=== PATIENT | female | born 1930 | race Caucasian/White ===

== ENCOUNTER 2018-03-11 20:05 | Inpatient (IN) | payer MEDICARE ==
[~2018-03-11] VITALS: Ht 165.1 cm; Wt 99.0 kg
[~2018-03-11 20:05] MED LIST: ALPR0.25 PO; GLYB5TAB3 PO; HYDR-1179 PO; IBUP800T19 PO; LINA145C PO; LISI1TAB5 PO; LORA0.5T96 PO; METF100010 PO; METF500T16 PO; PANT40TA3 PO
[2018-03-11] MEDS ORDERED: IV NORMAL SALINE 1,000ML 1,000 ML IV ONE (20:30)
[2018-03-11] MEDS ORDERED: INSULIN REGULAR 100 UNIT/ML 3ML VIAL. IV ONE (20:30)
[2018-03-11 20:57] LABS: BASO % 1 % (0-3); EOS % 0 % (0-3); LYMPH # 0.7 x10^3/uL (1.0-4.8); LYMPH % 8 % (24-48); MEAN CORPUSCULAR HEMOGLOBIN 32 pg (25-35); MEAN CORPUSCULAR HGB CONC 33 g/dL (31-37); MEAN CORPUSCULAR VOLUME 95 fL (79-100); MONO # 0.5 x10^3/uL (0.0-1.1); MONO % 6 % (0-9); NEUT # 7.5 x10^3uL (1.8-7.7); NEUT % 85 % (31-73); PLATELET COUNT 246 x10^3/uL (140-400); RED BLOOD COUNT 3.78 x10^6/uL (3.50-5.40); WHITE BLOOD COUNT 8.8 x10^3/uL (4.0-11.0)
--- NOTE | 2018-03-11 21:03 | ED.ADGEN ---
Past History Past Medical History: Arthritis, Diabetes, Hypertension Past Surgical History: Appendectomy, Hysterectomy, Tonsillectomy Smoking: Non-smoker Alcohol Use: None Drug Use: None Adult General Chief Complaint Chief Complaint fall HPI HPI fall , at home , lives with her daughter, i felt my knees weak, fell backward, hit my head , no syncope ,no cp , no palpitation, just generalized weakness Review of Systems Review of Systems Constitutional: Denies fever or chills [] Eyes: Denies change in visual acuity, redness, or eye pain [] HENT: Denies nasal congestion or sore throat [] Respiratory: Denies cough or shortness of breath [] Cardiovascular: No additional information not addressed in HPI [] GI: Denies abdominal pain, nausea, vomiting, bloody stools or diarrhea [] : Denies dysuria or hematuria [] Musculoskeletal: Denies back pain or joint pain [] Integument: Denies rash or skin lesions [] Neurologic: Denies headache, focal weakness or sensory changes [] Endocrine: Denies polyuria or polydipsia [] All other systems were reviewed and found to be within normal limits, except as documented in this note. Current Medications Current Medications Current Medications Medications (Trade) Dose Ordered Sig/Roberto Start Time Stop Time Status Last Admin Dose Admin Acetaminophen (Tylenol) 650 mg PRN Q4HRS PRN 03/11/18 23:15 03/12/18 23:14 Insulin Human Regular (HumuLIN R VIAL) 5 unit 1X ONCE 03/11/18 20:30 03/11/18 20:31 DC 03/11/18 21:10 5 UNIT Morphine Sulfate (Morphine 2mg Syringe) 2 mg PRN Q2HR PRN 03/11/18 23:15 03/12/18 23:14 Morphine Sulfate (Morphine 4mg Syringe) 4 mg 1X ONCE 03/11/18 23:30 03/11/18 23:31 DC 03/11/18 23:12 4 MG Ondansetron HCl (Zofran) 4 mg PRN Q4HRS PRN 03/11/18 23:15 03/12/18 23:14 Sodium Chloride 1,000 ml @ 75 mls/hr [id number] 03/11/18 23:10 03/12/18 23:09 Allergies Allergies Allergies Coded Allergies Type Severity Reaction Last Updated Verified No Known Drug Allergies 10/04/14 No Physical Exam Physical Exam Constitutional: Well developed, well nourished, no acute distress, non-toxic appearance. [] HENT: Normocephalic, atraumatic, bilateral external ears normal, oropharynx moist, no oral exudates, nose normal. [] Eyes: PERRLA, EOMI, conjunctiva normal, no discharge. [] Neck: Normal range of motion, no tenderness, supple, no stridor. [] Cardiovascular:Heart rate regular rhythm, no murmur [] Lungs & Thorax: Bilateral breath sounds clear to auscultation [] Abdomen: Bowel sounds normal, soft, no tenderness, no masses, no pulsatile masses. [] Skin: Warm, dry, no erythema, no rash. [] Back: No tenderness, no CVA tenderness. [] Extremities: No tenderness, no cyanosis, no clubbing, ROM intact, no edema. [] Neurologic: Alert and oriented X 3, normal motor function, normal sensory function, no focal deficits noted. [] Psychologic: Affect normal, judgement normal, mood normal. [] Current Patient Data Vital Signs Vital Signs Date Time Temp Pulse Resp B/P (MAP) Pulse Ox O2 Delivery O2 Flow Rate FiO2 03/11/18 23:12 16 96 Room Air 03/11/18 20:05 98.4 75 Lab Results Laboratory Tests Test 03/11/18 20:31 03/11/18 20:41 03/11/18 21:05 03/11/18 22:17 Glucose (Fingerstick) 227 mg/dL (70-99) H 168 mg/dL (70-99) H White Blood Count 8.8 x10^3/uL (4.0-11.0) Red Blood Count 3.78 x10^6/uL (3.50-5.40) Hemoglobin 12.0 g/dL (12.0-15.5) Hematocrit 36.0 % (36.0-47.0) Mean Corpuscular Volume 95 fL (79-100) Mean Corpuscular Hemoglobin 32 pg (25-35) Mean Corpuscular Hemoglobin Concent 33 g/dL (31-37) Red Cell Distribution Width 13.0 % (11.5-14.5) Platelet Count 246 x10^3/uL (140-400) Neutrophils (%) (Auto) 85 % (31-73) H Lymphocytes (%) (Auto) 8 % (24-48) L Monocytes (%) (Auto) 6 % (0-9) Eosinophils (%) (Auto) 0 % (0-3) Basophils (%) (Auto) 1 % (0-3) Neutrophils # (Auto) 7.5 x10^3uL (1.8-7.7) Lymphocytes # (Auto) 0.7 x10^3/uL (1.0-4.8) L Monocytes # (Auto) 0.5 x10^3/uL (0.0-1.1) Eosinophils # (Auto) 0.0 x10^3/uL (0.0-0.7) Basophils # (Auto) 0.0 x10^3/uL (0.0-0.2) Sodium Level 135 mmol/L (136-145) L Potassium Level 5.2 mmol/L (3.5-5.1) H Chloride Level 98 mmol/L (98-107) Carbon Dioxide Level 27 mmol/L (21-32) Anion Gap 10 (6-14) Blood Urea Nitrogen 26 mg/dL (7-20) H Creatinine 1.1 mg/dL (0.6-1.0) H Estimated GFR (Cockcroft-Gault) 47.0 BUN/Creatinine Ratio 24 (6-20) H Glucose Level 248 mg/dL (70-99) H Calcium Level 10.0 mg/dL (8.5-10.1) Total Bilirubin 0.4 mg/dL (0.2-1.0) Aspartate Amino Transferase (AST) 19 U/L (15-37) Alanine Aminotransferase (ALT) 23 U/L (14-59) Alkaline Phosphatase 65 U/L (46-116) Troponin I Quantitative < 0.017 ng/mL (0-0.055) Total Protein 7.8 g/dL (6.4-8.2) Albumin 3.9 g/dL (3.4-5.0) Albumin/Globulin Ratio 1.0 (1.0-1.7) Urine Collection Type U cath Urine Color Yellow Urine Clarity Clear Urine pH 5.5 Urine Specific Thatcher >=1.030 Urine Protein 30 mg/dl (NEG-TRACE) Urine Glucose (UA) 100 mg/dL (NEG) Urine Ketones (Stick) Trace mg/dL (NEG) Urine Blood Neg (NEG) Urine Nitrite Neg (NEG) Urine Bilirubin Neg (NEG) Urine Urobilinogen Dipstick 0.2 mg/dL (0.2 mg/dL) Urine Leukocyte Esterase Neg (NEG) Urine RBC 1-2 /HPF (0-2) Urine WBC 1-4 /HPF (0-4) Urine Squamous Epithelial Cells Mod /LPF Urine Bacteria Few /HPF (0-FEW) Urine Hyaline Casts Few /HPF EKG EKG [] Radiology/Procedures Radiology/Procedures [] Course & Med Decision Making Course & Med Decision Making Pertinent Labs and Imaging studies reviewed. (See chart for details) [] Final Impression Final Impression [] Problems: (1) Hyperglycemia (2) Generalized weakness Dragon Disclaimer Dragon Disclaimer This electronic medical record was generated, in whole or in part, using a voice recognition dictation system. KATELYN CHAVEZ MD Mar 11, 2018 21:03
[2018-03-11 21:13] LABS: ALBUMIN 3.9 g/dL (3.4-5.0); CREATININE 1.1 mg/dL (0.6-1.0); POTASSIUM 5.2 mmol/L (3.5-5.1); TOTAL BILIRUBIN 0.4 mg/dL (0.2-1.0); TOTAL PROTEIN 7.8 g/dL (6.4-8.2)
--- NOTE | 2018-03-11 22:06 | RAD ---
PQRS Compliance statement: One or more of the following individualized dose reduction techniques were utilized for this examination: 1. Automated exposure control. 2. Adjustment of the mA and/or kV according to patient size. 3. Use of iterative reconstruction technique. Indication:fall x 2 in last couple days TECHNIQUE: CT head without IV contrast COMPARISON:None FINDINGS: Limited exam due to motion artifact. No pathologic extra-axial or intra-axial fluid collection. Mild diffuse cerebral atrophy. The ventricles and basal cisterns are within normal limits. Bilateral basal ganglia punctate calcifications, nonspecific. No acute intracranial bleed. No focal loss of moncada-white differentiation. Orbits are within normal limits. No large scalp hematoma. No apparent acute calvarial fractures. The paranasal sinuses and mastoid air cells are clear. IMPRESSION: Limited exam due to significant motion artifact. No apparent intracranial process. Electronically signed by: Toño Connor DO (03/11/2018 10:01 PM) [facility]
[2018-03-11 22:28] LABS: BACTERIA,URINE FEW /HPF (0-FEW); BILIRUBIN,URINE NEG (NEG); CLARITY,URINE CLEAR; COLOR,URINE YELLOW; GLUCOSE,URINE 100 mg/dL (NEG); NITRITE,URINE NEG (NEG); UROBILINOGEN,URINE 0.2 mg/dL (0.2 mg/dL)
[2018-03-11 22:29] LABS: HYALINE CASTS, URINE FEW /HPF; SQUAMOUS EPITHELIAL CELL,UR MOD /LPF
--- NOTE | 2018-03-11 22:40 | RAD ---
Indication: Fall. Bilateral knee pain and pelvic pain. TECHNIQUE: Multiple views of the bilateral knees and multiple views of the pelvis COMPARISON: None FINDINGS: Knee: Osteopenia. No acute fracture or dislocation. Moderate bilateral tricompartmental osteoarthritis worse in the patellofemoral compartments. No suprapatellar effusion. Pelvis: Bilateral hip joints are symmetric. Mild bilateral osteoarthritis. No acute fracture. IMPRESSION: As above. Electronically signed by: Toño Connor DO (03/11/2018 10:36 PM) [facility]
[2018-03-11] MEDS ORDERED: MORPHINE SULFATE 2 MG/ML DISP.SYRIN. IV PRN (23:15)
[2018-03-11] MEDS ORDERED: ONDANSETRON PF 4 MG/2 ML VIAL. IV PRN (23:15)
[2018-03-11] MEDS ORDERED: MORPHINE SULFATE 4 MG/ML DISP.SYRIN. IV ONE (23:30)
[2018-03-12 00:28] VITALS: BP 164/75
[2018-03-12] MEDS ORDERED: GLYB5TAB3 PO (01:27)
[2018-03-12] MEDS ORDERED: METF500T16 PO (01:27)
[2018-03-12] MEDS ORDERED: MIRA50TA PO (01:27)
[2018-03-12] MEDS ORDERED: ZOLP5TAB5 PO (01:27)
[2018-03-12] MEDS ORDERED: MV-M1TAB7 PO (01:34)
[2018-03-12] MEDS ORDERED: CALC-30 PO (01:34)
[2018-03-12] MEDS ORDERED: ASPI-630 PO (01:38)
[2018-03-12] MEDS ORDERED: VIT1TABL32 PO (01:38)
[2018-03-12] MEDS ORDERED: ACET325T9 PO (01:38)
[2018-03-12] MEDS ORDERED: LEVO75TA5 PO (01:38)
[2018-03-12] MEDS: IV NORMAL SALINE 1,000ML 1,000 ML IV SCH ×2 (01:57→14:59)
[2018-03-12] MEDS: ACETAMINOPHEN 325 MG TABLET PO PRN ×3 (01:57→20:45)
--- NOTE | 2018-03-12 04:12 | EKG ---
[address] [address] Test Date: 2018-03-11 Test Time: 20:46:11 Pat Name: FLORIDA NUGENT Department: Room: 124 A Gender: F Data Communications Engineer: : [id number] Requested By: KATELYN CHAVEZ Order Number: [id number] Reading MD: Klaus Nolan MD Measurements Intervals Tanana Rate: 72 P: 48 WY: 156 QRS: -12 QRSD: 90 T: 20 QT: 380 QTc: 418 Interpretive Statements SINUS RHYTHM NON-SPECIFIC ST/T CHANGES Electronically Signed On 03-16-2018 9:36:09 A P MECHANIC by Klaus Nolan MD
[2018-03-12 04:37] VITALS: BP 146/71
--- NOTE | 2018-03-12 04:43 | RAD ---
AP chest x-ray HISTORY: Cough and shortness of breath, fall. COMPARISON: Chest x-ray April 19, 2016. FINDINGS: Mild cardiomegaly is stable. Mediastinum unremarkable. No pneumothorax, pulmonary opacities or pleural effusions. The bones are unremarkable. IMPRESSION: No acute process. Mild cardiomegaly stable. Electronically signed by: Kanu Fraire MD (03/12/2018 4:38 AM) [facility]
[2018-03-12 06:11] LABS: BASO % 1 % (0-3); EOS % 0 % (0-3); HEMATOCRIT 32.2 % (36.0-47.0); HEMOGLOBIN 10.8 g/dL (12.0-15.5); LYMPH # 1.2 x10^3/uL (1.0-4.8); LYMPH % 18 % (24-48); MEAN CORPUSCULAR HEMOGLOBIN 32 pg (25-35); MEAN CORPUSCULAR HGB CONC 34 g/dL (31-37); MEAN CORPUSCULAR VOLUME 95 fL (79-100); MONO # 0.6 x10^3/uL (0.0-1.1); MONO % 10 % (0-9); NEUT # 4.6 x10^3uL (1.8-7.7); NEUT % 71 % (31-73); PLATELET COUNT 209 x10^3/uL (140-400); RED BLOOD COUNT 3.38 x10^6/uL (3.50-5.40); RED CELL DISTRIBUTION WIDTH 12.8 % (11.5-14.5); WHITE BLOOD COUNT 6.5 x10^3/uL (4.0-11.0)
[2018-03-12 06:23] LABS: ALBUMIN 3.3 g/dL (3.4-5.0); ALBUMIN/GLOBULIN RATIO 0.9 (1.0-1.7); CALCIUM 9.1 mg/dL (8.5-10.1); GFR 52.4; POTASSIUM 4.2 mmol/L (3.5-5.1); TOTAL BILIRUBIN 0.4 mg/dL (0.2-1.0); TOTAL PROTEIN 6.9 g/dL (6.4-8.2)
[2018-03-12] MEDS ORDERED: glyBURIDE 5 MG TABLET PO SCH (09:00)
[2018-03-12] MEDS ORDERED: LEVOTHYROXINE 75 MCG TABLET PO SCH (09:00)
[2018-03-12] MEDS ORDERED: HYDROcodon/IBUPROFEN 7.5/200MG 1 TAB TABLET PO PRN (09:00)
[2018-03-12] MEDS ORDERED: NON FORMULARY ITEM (Mirabegron (Myrbetriq) 50 MG) PO SCH (09:00)
[2018-03-12] MEDS ORDERED: IPRATRPIUM/ALBUTEROL 0.5/2.5MG 3 ML NEBU. ONE (09:13)
[2018-03-12] MEDS: IPRATRPIUM/ALBUTEROL 0.5/2.5MG 3 ML NEBU. NEB SCH ×3 (09:45→20:28)
[2018-03-12] MEDS: MIRABEGRON 25 MG TAB.ER.24H PO SCH (09:52)
[2018-03-12] MEDS: HYDROcodone/APAP 7.5/325MG 1 TAB TABLET PO PRN ×2 (09:53→20:46)
[2018-03-12] MEDS: MULTIVITAMIN with MINERAL TABLET. PO SCH (09:53)
[2018-03-12] MEDS: BENZONATATE 100 MG CAPSULE. PO SCH ×3 (09:54→21:00)
[2018-03-12] MEDS: ACETAMINOPHEN 500 MG TABLET PO SCH ×2 (09:54→21:00)
[2018-03-12] MEDS: metFORMIN 500 MG TABLET PO SCH (09:54)
[2018-03-12] MEDS: ASPIRIN 81 MG TAB.CHEW PO SCH (09:54)
[2018-03-12] MEDS: MULTIVITAMIN I-VITE TABLET. PO SCH (09:54)
[2018-03-12] MEDS: CALCIUM CARB/VIT D3 500/200 TABLET PO SCH (09:54)
[2018-03-12 10:23] VITALS: BP 167/72
[2018-03-12 12:07] LABS: INFLUENZA A PATIENT NEGATIVE (NEGATIVE); INFLUENZA B PATIENT NEGATIVE (NEGATIVE)
[2018-03-12] MEDS: BENZOCAINE/MENTHOL LOZNGE 18'S BOX. PO PRN (15:22)
[2018-03-12 15:24] VITALS: BP 158/66
[2018-03-12 19:31] VITALS: BP 165/75
[2018-03-12 20:09] LABS: HEMOGLOBIN A1C 8.3 % (4.8-5.6)
--- NOTE | 2018-03-12 20:30 | HP ---
ADMIT DATE: 03/11/2018 HISTORY OF PRESENT ILLNESS: The patient is an 87-year-old female who came in through the Emergency Room, apparently for the last 3 days, has not been feeling well and has been falling; however, refused to come to the hospital until late last night when she fell again and required several people to pick her up and her daughter demanded that she come to the Emergency Room. From there, she was admitted to the hospital. She was having what appeared to be possible sepsis. She had some change in mental status, decreased mentation, and the like. She had an elevated D-dimer, probably from the fall itself and will be evaluated for that in time. PAST MEDICAL AND SURGICAL HISTORY: Includes tonsillectomy, cardiac disorders, hypertension, GERD, obstructive bowel problems, appendectomy, obesity, hysterectomy, renal disease, osteoarthritis, back pain, diabetes, hypothyroidism, pneumococcal vaccination is refused. She has had bladder surgery, as well as the appendectomy. FAMILY HISTORY: Father and mother both had diabetes; cardiovascular disease in brother, father, and sister. ALLERGIES: No known drug allergies. She is a DNR. SOCIAL HISTORY: No smoking, alcohol, or drug use. Lives at home. MEDICATIONS: I reconciled her home medications, which looked appropriate, have been reviewed, and are in the chart. REVIEW OF SYSTEMS: The patient is very tremulous, she is very weak, and does not seem her normal self. She was running a low-grade temperature of 99.6 and just not breathing very well, with difficulty in breathing. The patient was unable to give a review of systems, as like I said, she was basically out of it. PHYSICAL EXAMINATION: VITAL SIGNS: Her initial blood monitored at 208/106, respiratory rate 18, pulse 76, temperature 99.6. She is on 2 liters of oxygen. She has difficulty in breathing. She is a mouth breather. GENERAL: The patient otherwise is alert, but as noted, is not able to give much of a history. Most of the history is obtained from her daughter. HEENT: Head was atraumatic, normocephalic, maybe a bump on the back of the head where she had fallen. Mouth and throat are normal. Eyes were PERRLA. NECK: Fairly supple though some stiffness. LUNGS: Diminished throughout, poor movement of air. CARDIOVASCULAR: Regular sinus rhythm, S1, S2. ABDOMEN: Soft, nontender, protuberant. No rebounding, no guarding. Positive bowel sounds, no hepatosplenomegaly was noted. EXTREMITIES: No clubbing or cyanosis. Have +1 pitting edema, apparently it has gone down somewhat since she has had her legs up during the night. LUNGS: Show decreased breath sounds with both inspiratory and expiratory wheezes. CARDIOVASCULAR: Regular sinus rhythm, soft, and so forth. LABORATORY DATA: Basically are unremarkable. She did have a blood sugar of 227. Her BUN and creatinine 135/3.5 ____ BUN and creatinine of 26/1.1. Cardiac troponin negative. White count stable at 6.5, hemoglobin 10, and hematocrit 38. Positive D-dimer, specific gravity of urine greater than 1.030. She will be monitored carefully, make further evaluation on her in that regard. IMPRESSION: Generalized weakness, acute exacerbation of chronic obstructive pulmonary disease. The patient had marked wheezing and tightness in her chest. The patient otherwise has acute exacerbation of chronic obstructive pulmonary disease, SIRS, type 2 diabetes, morbid obesity, anemia of chronic disease, positive D-dimer, contusion of the head with mild concussion, change in mental status, probably secondary to fall, and mild concussion. IMAGING STUDIES: A CT scan of the head was unremarkable as were the rest of her x-rays of the pelvis, knee, and chest were basically all within normal range and no acute process was noted. PLAN: The patient will be admitted, aggressive pulmonary toilet, give her some IV antibiotic for this low grade temperature, being a diabetic and at high risk for such, and make further evaluation on her as indicated. We will get a CTA of her chest and make further evaluations on her as indicated. SARA ASHFORD MD DR: INTHYA/mickie JOB#: [id number] / [id number]
[2018-03-12] MEDS: ZOLPIDEM 5 MG TABLET. PO SCH (20:45)
[2018-03-12 23:01] VITALS: BP 137/68
[2018-03-13] VITALS (8 sets, daily range): BP systolic 127–201; BP diastolic 69–89
[2018-03-13] MEDS ORDERED: amLODIPine BESYLATE 10 MG TABLET PO ONE (02:30)
[2018-03-13] MEDS: IPRATRPIUM/ALBUTEROL 0.5/2.5MG 3 ML NEBU. NEB SCH ×4 (05:13→19:47)
[2018-03-13] MEDS ORDERED: FUROSEMIDE 20 MG/2 ML VIAL IVP ONE (05:30)
[2018-03-13] MEDS: LEVOTHYROXINE 75 MCG TABLET PO SCH (05:32)
[2018-03-13 06:27] LABS: BASO % 0 % (0-3); EOS % 0 % (0-3); HEMATOCRIT 33.6 % (36.0-47.0); LYMPH # 0.8 x10^3/uL (1.0-4.8); LYMPH % 8 % (24-48); MEAN CORPUSCULAR HEMOGLOBIN 32 pg (25-35); MEAN CORPUSCULAR HGB CONC 33 g/dL (31-37); MEAN CORPUSCULAR VOLUME 96 fL (79-100); MONO # 0.6 x10^3/uL (0.0-1.1); MONO % 6 % (0-9); NEUT # 8.1 x10^3uL (1.8-7.7); NEUT % 86 % (31-73); PLATELET COUNT 208 x10^3/uL (140-400); RED CELL DISTRIBUTION WIDTH 13.2 % (11.5-14.5); WHITE BLOOD COUNT 9.4 x10^3/uL (4.0-11.0)
[2018-03-13 06:36] LABS: ALBUMIN 3.4 g/dL (3.4-5.0); ALBUMIN/GLOBULIN RATIO 0.9 (1.0-1.7); CREATININE 0.9 mg/dL (0.6-1.0); GFR 59.2; TOTAL BILIRUBIN 0.4 mg/dL (0.2-1.0); TOTAL PROTEIN 7.3 g/dL (6.4-8.2)
[2018-03-13] MEDS: glyBURIDE 5 MG TABLET PO SCH (08:28)
[2018-03-13] MEDS: metFORMIN 500 MG TABLET PO SCH (08:29)
[2018-03-13] MEDS: ACETAMINOPHEN 500 MG TABLET PO SCH ×2 (08:29→20:40)
[2018-03-13] MEDS: MULTIVITAMIN I-VITE TABLET. PO SCH (08:29)
[2018-03-13] MEDS: BENZONATATE 100 MG CAPSULE. PO SCH ×3 (08:29→20:40)
[2018-03-13] MEDS: ASPIRIN 81 MG TAB.CHEW PO SCH (08:29)
[2018-03-13] MEDS: amLODIPine BESYLATE 10 MG TABLET PO SCH (08:30)
[2018-03-13] MEDS: CALCIUM CARB/VIT D3 500/200 TABLET PO SCH (08:30)
[2018-03-13] MEDS: MULTIVITAMIN with MINERAL TABLET. PO SCH (08:30)
[2018-03-13] MEDS: MIRABEGRON 25 MG TAB.ER.24H PO SCH (08:34)
[2018-03-13] MEDS: LACTOBACILLUS RHAMNOSUS GG 1 CAPSULE. PO SCH ×2 (08:34→20:40)
[2018-03-13] MEDS ORDERED: DEXTROSE 50% 25 GM / 50ML DISP.SYRIN. IV PRN (10:00)
--- NOTE | 2018-03-13 11:34 | RAD ---
EXAM: CT chest with contrast - pulmonary embolus protocol CLINICAL HISTORY: ELEVATED D DIMER dyspnea, shortness of breath. COMPARISON: None. TECHNIQUE: CT of the chest following the administration of intravenous contrast during the pulmonary arterial phase. Axial, coronal and sagittal reformatted images were generated including MIP images. ---PQRS compliance statement - One or more of the following individualized dose reduction techniques were utilized for this study: 1. Automated exposure control 2. Adjustment of the mA and/or kV according to patient size 3. Use of iterative reconstruction technique--- FINDINGS: CHEST: Diagnostic quality: Adequate. Pulmonary emboli: None seen Right heart strain: None Pulmonary arteries: Normal in caliber. The heart is borderline enlarged. No pericardial effusion. Coronary artery calcifications are seen. Calcified mediastinal lymph nodes are seen. No mediastinal or hilar lymphadenopathy by size criteria. No axillary lymphadenopathy. No pleural effusion or pneumothorax. Linear and patchy opacities in the lower lobes bilaterally and lingula likely subsegmental atelectasis or consolidation. A 4 mm left lower lobe lung nodule (image 45) is seen. Visualized Upper abdomen: Diffuse hepatic hypoattenuation likely hepatic steatosis. Calcified granulomas are seen within the spleen. Bones: Multilevel degenerative changes of the spine are seen. Evaluation of the osseous structures is limited given MIP reformats. IMPRESSION: 1. No evidence for acute pulmonary embolus. 2. Linear and patchy opacities in the lower lobes, lingula may represent consolidative process such as pneumonia although atelectasis may have similar appearance. 3. Hepatic steatosis Electronically signed by: hSadi Ramírez MD (03/13/2018 11:29 AM) [facility]
[2018-03-13] MEDS: INSULIN LISPRO 300 UNITS/3 ML INSULN.PEN. SQ SCH ×2 (12:17→17:17)
--- NOTE | 2018-03-13 12:39 | PN ---
DATE: SUBJECTIVE: An 87-year-old female in with acute exacerbation of COPD as well as severe generalized weakness, deconditioning and ____. The patient seems to be resting fairly comfortably, a little bit fluid overloaded, gave her some Lasix, put a Farley catheter in, we will obtain a PICC line, and continues to need IV antibiotic therapy and type 2 diabetes, we will put her on a sliding scale. VITAL SIGNS: Blood pressure 165/81, respiratory rate 22, pulse 85, afebrile. GENERAL: Positive D-dimer. To get an angiogram. Otherwise, the patient is alert, weak, but a little bit stronger than she was yesterday. She is improving. LUNGS: Diminished, rhonchi noted in most of the lobes, decreased breath sounds. CARDIOVASCULAR: Regular sinus rhythm. LABORATORY DATA: A1c 8.3. PLAN: We will continue to monitor the patient and we will make further evaluation on her as indicated. Otherwise, her legs are still showing some signs of swelling and edema. Place KEN hoses on them as well as try to keep them elevated at least for 2 hours during the day. We will get an angiogram. IMPRESSION: Acute exacerbation of chronic obstructive pulmonary disease, stasis dermatitis, some type of upper respiratory tract infection, etiology unknown; type 2 diabetes, poorly controlled, and elevated D-dimer. Plan as above. SARA ASHFORD MD DR: NITHYA/mickie JOB#: [id number] / [id number]
[2018-03-13] MEDS: BENZOCAINE/MENTHOL LOZNGE 18'S BOX. PO PRN (13:10)
[2018-03-13] MEDS: DICLOFENAC SODIUM 1% TOPICAL GEL 100GM TUBE. TP SCH ×2 (14:29→20:41)
[2018-03-13] MEDS: HYDROcodon/IBUPROFEN 7.5/200MG 1 TAB TABLET PO PRN (20:40)
[2018-03-13] MEDS: ZOLPIDEM 5 MG TABLET. PO SCH (20:40)
[2018-03-14] MEDS: IPRATRPIUM/ALBUTEROL 0.5/2.5MG 3 ML NEBU. NEB SCH ×4 (05:26→20:08)
[2018-03-14] MEDS: LEVOTHYROXINE 75 MCG TABLET PO SCH (05:32)
[2018-03-14] MEDS: HYDROcodon/IBUPROFEN 7.5/200MG 1 TAB TABLET PO PRN (05:32)
[2018-03-14 05:49] VITALS: BP 167/77
[2018-03-14] MEDS: INSULIN LISPRO 300 UNITS/3 ML INSULN.PEN. SQ SCH ×3 (08:00→17:17)
[2018-03-14] MEDS: glyBURIDE 5 MG TABLET PO SCH (09:08)
[2018-03-14] MEDS: LACTOBACILLUS RHAMNOSUS GG 1 CAPSULE. PO SCH ×2 (09:08→20:34)
[2018-03-14] MEDS: metFORMIN 500 MG TABLET PO SCH (09:08)
[2018-03-14] MEDS: MULTIVITAMIN with MINERAL TABLET. PO SCH (09:08)
[2018-03-14] MEDS: MIRABEGRON 25 MG TAB.ER.24H PO SCH (09:09)
[2018-03-14] MEDS: ACETAMINOPHEN 500 MG TABLET PO SCH ×2 (09:09→20:33)
[2018-03-14] MEDS: BENZONATATE 100 MG CAPSULE. PO SCH ×3 (09:09→20:34)
[2018-03-14] MEDS: ASPIRIN 81 MG TAB.CHEW PO SCH (09:10)
[2018-03-14] MEDS: amLODIPine BESYLATE 10 MG TABLET PO SCH (09:10)
[2018-03-14] MEDS: CALCIUM CARB/VIT D3 500/200 TABLET PO SCH (09:10)
[2018-03-14] MEDS: MULTIVITAMIN I-VITE TABLET. PO SCH (09:10)
[2018-03-14] MEDS: DICLOFENAC SODIUM 1% TOPICAL GEL 100GM TUBE. TP SCH ×3 (09:11→20:38)
[2018-03-14 10:45] VITALS: BP 151/75
[2018-03-14 15:42] VITALS: BP 168/79
[2018-03-14 19:41] VITALS: BP 149/72
[2018-03-14] MEDS: BENZOCAINE/MENTHOL LOZNGE 18'S BOX. PO PRN (20:33)
[2018-03-14] MEDS: ZOLPIDEM 5 MG TABLET. PO SCH (20:34)
--- NOTE | 2018-03-14 22:46 | PN ---
DATE: SUBJECTIVE: An 87-year-old female in with pneumonia of unspecified etiology, acute respiratory failure with hypoxia. The patient is resting fairly comfortably, receiving IV antibiotic therapy as well as aggressive pulmonary toilet. She is improved overall. OBJECTIVE: VITAL SIGNS: Blood pressure 150/72, respiratory rate 24, pulse 64. She ran a low-grade temperature of 99. GENERAL: The patient is alert and oriented. LUNGS: Diminished throughout, poor movement of air, but clear than they have been. CARDIOVASCULAR: Regular sinus rhythm. ABDOMEN: Soft, protuberant. EXTREMITIES: No clubbing, cyanosis or edema. NEUROLOGIC: The patient is much more alert. IMPRESSION: She has been discussed with the daughter present of acute exacerbation of chronic obstructive pulmonary disease, hypoxia, acute community-acquired pneumonia of unspecified etiology, morbid obesity, type 2 diabetes and [id number] protein malnutrition. SARA ASHFORD MD DR: NITHYA/mickie JOB#: [id number] / [id number]
[2018-03-14 23:01] VITALS: BP 175/73
[2018-03-15] MEDS: LEVOTHYROXINE 75 MCG TABLET PO SCH (05:24)
[2018-03-15 05:34] VITALS: BP 188/92
[2018-03-15] MEDS: IPRATRPIUM/ALBUTEROL 0.5/2.5MG 3 ML NEBU. NEB SCH ×4 (05:34→20:17)
[2018-03-15] MEDS: INSULIN LISPRO 300 UNITS/3 ML INSULN.PEN. SQ SCH ×3 (08:00→17:33)
[2018-03-15] MEDS: BENZOCAINE/MENTHOL LOZNGE 18'S BOX. PO PRN (08:08)
[2018-03-15] MEDS: CALCIUM CARB/VIT D3 500/200 TABLET PO SCH (08:09)
[2018-03-15] MEDS: BENZONATATE 100 MG CAPSULE. PO SCH ×3 (08:09→20:43)
[2018-03-15] MEDS: HYDROcodon/IBUPROFEN 7.5/200MG 1 TAB TABLET PO PRN (08:09)
[2018-03-15] MEDS: glyBURIDE 5 MG TABLET PO SCH (08:09)
[2018-03-15] MEDS: ACETAMINOPHEN 500 MG TABLET PO SCH ×2 (08:09→20:43)
[2018-03-15] MEDS: amLODIPine BESYLATE 10 MG TABLET PO SCH (08:09)
[2018-03-15] MEDS: metFORMIN 500 MG TABLET PO SCH (08:09)
[2018-03-15] MEDS: ASPIRIN 81 MG TAB.CHEW PO SCH (08:10)
[2018-03-15] MEDS: MULTIVITAMIN I-VITE TABLET. PO SCH (08:10)
[2018-03-15] MEDS: MIRABEGRON 25 MG TAB.ER.24H PO SCH (08:10)
[2018-03-15] MEDS: DICLOFENAC SODIUM 1% TOPICAL GEL 100GM TUBE. TP SCH ×3 (08:12→20:43)
[2018-03-15] MEDS: MULTIVITAMIN with MINERAL TABLET. PO SCH (08:12)
[2018-03-15] MEDS: LACTOBACILLUS RHAMNOSUS GG 1 CAPSULE. PO SCH ×2 (08:14→20:43)
[2018-03-15 10:27] VITALS: BP 157/76
[2018-03-15 14:50] VITALS: BP 136/66
[2018-03-15] MEDS: HYDROcodone/APAP 7.5/325MG 1 TAB TABLET PO PRN (16:46)
[2018-03-15 19:47] VITALS: BP 172/82
[2018-03-15] MEDS: ZOLPIDEM 5 MG TABLET. PO SCH (20:43)
[2018-03-15] MEDS: CEFDINIR 300 MG CAPSULE PO SCH (20:48)
--- NOTE | 2018-03-15 22:45 | PN ---
DATE: SUBJECTIVE: An 87-year-old female with pneumonia. She is doing somewhat better, looks a little bit healthier today. OBJECTIVE: VITAL SIGNS: Blood pressure 157/76, respiratory rate 24, pulse 60, afebrile, oxygen saturation on 1 liter 95%. GENERAL: The patient is alert and oriented, little bit of more strength, better affect. Daughter present. LUNGS: Diminished rhonchi noted, probably moving some of the secretions she had in her lungs. Otherwise, she seems to be resting fairly comfortably. CARDIOVASCULAR: Irregularly irregular rhythm. ABDOMEN: Protuberant, soft, nontender. EXTREMITIES: No clubbing or cyanosis. There is edema, a little more like lymphedema, but less redness than there has been. We discussed lymphedema with the family. IMPRESSION: Pneumonia of unspecified etiology, community-acquired as well as exacerbation of chronic obstructive pulmonary disease with hypoxia and morbid obesity, type 2 diabetes, htjs-qv-ikqezsal protein malnutrition. PLAN: Continue on such. We will try to get her into a skilled unit for further evaluation and treatment as indicated. SARA ASHFORD MD DR: NITHYA/mickie JOB#: [id number] / [id number]
[2018-03-15 23:26] VITALS: BP 159/80
[2018-03-16] MEDS: LEVOTHYROXINE 75 MCG TABLET PO SCH (05:00)
[2018-03-16] MEDS: HYDROcodone/APAP 7.5/325MG 1 TAB TABLET PO PRN (05:00)
[2018-03-16] MEDS: IPRATRPIUM/ALBUTEROL 0.5/2.5MG 3 ML NEBU. NEB SCH ×3 (05:30→15:48)
[2018-03-16 05:41] VITALS: BP 178/87
[2018-03-16] MEDS: DICLOFENAC SODIUM 1% TOPICAL GEL 100GM TUBE. TP SCH ×2 (09:00→13:26)
[2018-03-16] MEDS: BENZONATATE 100 MG CAPSULE. PO SCH ×2 (09:04→13:25)
[2018-03-16] MEDS: glyBURIDE 5 MG TABLET PO SCH (09:04)
[2018-03-16] MEDS: LACTOBACILLUS RHAMNOSUS GG 1 CAPSULE. PO SCH (09:04)
[2018-03-16] MEDS: CALCIUM CARB/VIT D3 500/200 TABLET PO SCH (09:05)
[2018-03-16] MEDS: MULTIVITAMIN with MINERAL TABLET. PO SCH (09:05)
[2018-03-16] MEDS: amLODIPine BESYLATE 10 MG TABLET PO SCH (09:05)
[2018-03-16] MEDS: MULTIVITAMIN I-VITE TABLET. PO SCH (09:05)
[2018-03-16] MEDS: ASPIRIN 81 MG TAB.CHEW PO SCH (09:06)
[2018-03-16] MEDS: CEFDINIR 300 MG CAPSULE PO SCH (09:06)
[2018-03-16] MEDS: metFORMIN 500 MG TABLET PO SCH (09:07)
[2018-03-16] MEDS: ACETAMINOPHEN 500 MG TABLET PO SCH (09:07)
[2018-03-16] MEDS: MIRABEGRON 25 MG TAB.ER.24H PO SCH (09:08)
[2018-03-16] MEDS: INSULIN LISPRO 300 UNITS/3 ML INSULN.PEN. SQ SCH ×2 (09:10→13:29)
[2018-03-16 11:02] VITALS: BP 172/78
--- NOTE | 2018-03-16 13:22 | DS ---
DATE OF DISCHARGE: 03/16/2018 HOSPITAL COURSE: The patient is an 87-year-old female patient who was admitted with a complaint of not feeling well. She was found to be septic with altered mental status, decreased mentation. She has elevated D-dimer and was diagnosed with community-acquired pneumonia. Her CT scan of the chest showed no evidence of acute pulmonary embolism, but linear and patchy opacities in the lower lobe, ____ consolidative process such as pneumonia and was treated for community-acquired pneumonia with ceftriaxone and eventually she was switched to cefdinir. Her blood cultures showed no growth after 4 days and urine culture also showed less than 10,000 colony forming units of bacteria per mL of urine. As the patient continued to be deconditioned, a decision was made to admit her to swing bed to continue the process of rehabilitation. PHYSICAL EXAMINATION: GENERAL: When I saw her today, she was sitting in her chair comfortably, eating her lunch, in no apparent distress. There was no pallor, jaundice, cyanosis, or thyromegaly. No jugular venous distension. No lower limb edema. VITAL SIGNS: Her heart rate was 62, blood pressure was 172/78, temperature was 98.5, respiratory rate was 18, and oxygen saturation was 93% on room air. HEAD, EYES, EARS, NOSE, AND THROAT: Showed she is normocephalic, atraumatic. NECK: Supple. HEART: Showed normal first and second heart sounds. No gallop, rub, or murmur. CHEST: Clear to auscultation. No crepitation or rhonchi. ABDOMEN: Distended, soft, nontender. NEUROLOGIC: She is awake, alert, responding appropriately. All cranial nerves intact. She moves extremities without difficulty. Her intake over the last 24 hours was 860, output was 1600. LABORATORY DATA: Her most recent white cell count was 9400, hemoglobin 11, hematocrit 33, MCV 96, and platelet count of 208,000. Her blood sugar was reasonably controlled. Her most recent sodium was 137, potassium 4, chloride 100, bicarbonate 23, anion gap of 14, BUN 17, creatinine 0.9, estimated GFR was 59 mL per minute. Her calcium was 9. Total bilirubin, AST, ALT, alkaline phosphatase were normal. Total protein was 7.3, albumin was 3.4. Her D-dimer was slightly elevated at 0.79. Urinalysis was unremarkable and influenza A and B were negative. DISCHARGE MEDICATIONS: She was discharged to swing bed to continue on following medications: Cefdinir 300 mg twice a day, Tylenol 650 mg twice a day, aspirin 81 mg once a day, calcium carbonate with vitamin ____ one tablet once a day, glyburide 5 mg daily, hydrocodone/ibuprofen 7.5/200 one tablet every 6 hours as needed. She is also on levothyroxine 75 mcg once a day, metformin 500 mg daily, Myrbetriq 50 mg daily, multivitamin with mineral 1 tablet once a day, Ambien 5 mg at bedtime. FINAL DISCHARGE DIAGNOSES: 1. Community-acquired pneumonia, resolving. 2. Chronic obstructive pulmonary disease exacerbation. 3. Morbid obesity with obesity hypoventilation syndrome. 4. Type 2 diabetes. 5. Fbgn-ww-mczezkbe protein calorie malnutrition. JACINTO TRINIDAD MD DR: BEV/mickie JOB#: [id number] / [id number]
[2018-03-16 15:00] VITALS: BP 145/69
[2018-03-16] MEDS: BENZOCAINE/MENTHOL LOZNGE 18'S BOX. PO PRN (16:12)
== END 2018-03-16 17:40 | disposition swing bed (61) | DRG 88 ==
LOC: ER 20:05 → 1 SOUTH 22:30
PROVIDERS: ADMIT Family Medicine; ATTEND Family Medicine
DX: S06.0X9A Concussion with loss of consciousness of unspecified duration, initial encounter (principal); J18.9 Pneumonia, unspecified organism; J96.01 Acute respiratory failure with hypoxia; R65.10 Systemic inflammatory response syndrome (SIRS) of non-infectious origin without acute organ dysfunction; J44.1 Chronic obstructive pulmonary disease with (acute) exacerbation; J44.0 Chronic obstructive pulmonary disease with (acute) lower respiratory infection; E44.0 Moderate protein-calorie malnutrition; E66.2 Morbid (severe) obesity with alveolar hypoventilation; S00.93XA Contusion of unspecified part of head, initial encounter; D63.8 Anemia in other chronic diseases classified elsewhere; E11.65 Type 2 diabetes mellitus with hyperglycemia; E87.70 Fluid overload, unspecified; I10 Essential (primary) hypertension; I87.2 Venous insufficiency (chronic) (peripheral); Z82.49 Family history of ischemic heart disease and other diseases of the circulatory system; Z90.49 Acquired absence of other specified parts of digestive tract; Z90.710 Acquired absence of both cervix and uterus; Z83.3 Family history of diabetes mellitus; M19.90 Unspecified osteoarthritis, unspecified site; W18.39XA Other fall on same level, initial encounter; Y93.89 Activity, other specified; Y92.89 Other specified places as the place of occurrence of the external cause; Y99.8 Other external cause status; Z68.36 Body mass index [BMI] 36.0-36.9, adult
CPT/HCPCS: 36415; 70450; 71045; 71275; 72170; 73560; 80053; 81001; 82947; 83036; 83605; 83880; 84145; 84484; 85025; 85379; 87040; 87086; 87804; 93005; 94640; 94760; 96361; 96374; 96375; J0696; J1815; J2270; J7620; P9612; 97116; 99285-25; J7030

== ENCOUNTER 2018-03-16 12:42 | Inpatient (IN) | payer MEDICARE ==
[~2018-03-16] VITALS: Ht 165.1 cm; Wt 95.5 kg
[~2018-03-16 12:42] MED LIST changes: +ACET325T9 PO; +ASPI-630 PO; +CALC-30 PO; +LEVO75TA5 PO; +MIRA50TA PO; +MV-M1TAB7 PO; +VIT1TABL32 PO; +ZOLP5TAB5 PO
[2018-03-16] MEDS ORDERED: ZOLPIDEM 5 MG TABLET. PO PRN (19:30)
[2018-03-16] MEDS: BENZOCAINE/MENTHOL LOZNGE 18'S BOX. PO PRN (20:25)
[2018-03-16] MEDS: LACTOBACILLUS RHAMNOSUS GG 1 CAPSULE. PO SCH (20:34)
[2018-03-16] MEDS: BENZONATATE 100 MG CAPSULE. PO SCH (20:34)
[2018-03-16] MEDS: CEFDINIR 300 MG CAPSULE PO SCH (20:34)
[2018-03-16] MEDS: HYDROcodone/APAP 7.5/325MG 1 TAB TABLET PO PRN (20:37)
[2018-03-16] MEDS: ACETAMINOPHEN 500 MG TABLET PO SCH (20:37)
[2018-03-16] MEDS: DICLOFENAC SODIUM 1% TOPICAL GEL 100GM TUBE. TP SCH (20:38)
[2018-03-16] MEDS: IPRATRPIUM/ALBUTEROL 0.5/2.5MG 3 ML NEBU. NEB SCH (20:54)
[2018-03-16] MEDS ORDERED: INSULIN LISPRO 300 UNITS/3 ML INSULN.PEN. SQ ONE (21:00)
[2018-03-16 23:34] VITALS: BP 155/78
[2018-03-17] MEDS: IPRATRPIUM/ALBUTEROL 0.5/2.5MG 3 ML NEBU. NEB SCH ×4 (05:20→20:31)
[2018-03-17] MEDS: HYDROcodone/APAP 7.5/325MG 1 TAB TABLET PO PRN ×3 (05:53→21:14)
[2018-03-17] MEDS: LEVOTHYROXINE 75 MCG TABLET PO SCH (05:53)
[2018-03-17 06:23] VITALS: BP 170/78
[2018-03-17] MEDS ORDERED: amLODIPine BESYLATE 10 MG TABLET ONE (06:34)
[2018-03-17] MEDS: amLODIPine BESYLATE 10 MG TABLET PO SCH (06:39)
[2018-03-17] MEDS: BENZONATATE 100 MG CAPSULE. PO SCH ×3 (07:59→21:13)
[2018-03-17] MEDS: ACETAMINOPHEN 500 MG TABLET PO SCH ×2 (07:59→21:13)
[2018-03-17] MEDS: MULTIVITAMIN with MINERAL TABLET. PO SCH (07:59)
[2018-03-17] MEDS: ASPIRIN 81 MG TAB.CHEW PO SCH (07:59)
[2018-03-17] MEDS: metFORMIN 500 MG TABLET PO SCH ×2 (08:00→17:28)
[2018-03-17] MEDS: CALCIUM CARB/VIT D3 500/200 TABLET PO SCH ×2 (08:00→17:28)
[2018-03-17] MEDS: glyBURIDE 5 MG TABLET PO SCH ×2 (08:00→17:28)
[2018-03-17] MEDS: LACTOBACILLUS RHAMNOSUS GG 1 CAPSULE. PO SCH ×2 (08:00→21:13)
[2018-03-17] MEDS: CEFDINIR 300 MG CAPSULE PO SCH ×2 (08:00→21:13)
[2018-03-17] MEDS: MIRABEGRON 25 MG TAB.ER.24H PO SCH (08:01)
[2018-03-17] MEDS: INSULIN LISPRO 300 UNITS/3 ML INSULN.PEN. SQ SCH ×3 (08:05→17:32)
[2018-03-17] MEDS: DICLOFENAC SODIUM 1% TOPICAL GEL 100GM TUBE. TP SCH ×3 (08:25→21:17)
[2018-03-17 15:06] VITALS: BP 163/76
[2018-03-17 20:30] VITALS: BP 166/74
[2018-03-18] MEDS: HYDROcodone/APAP 7.5/325MG 1 TAB TABLET PO PRN ×4 (03:17→20:47)
[2018-03-18] MEDS: LEVOTHYROXINE 75 MCG TABLET PO SCH (05:35)
[2018-03-18] MEDS: IPRATRPIUM/ALBUTEROL 0.5/2.5MG 3 ML NEBU. NEB SCH ×4 (05:42→20:17)
[2018-03-18 06:05] VITALS: BP 158/84
[2018-03-18] MEDS: INSULIN LISPRO 300 UNITS/3 ML INSULN.PEN. SQ SCH ×3 (07:30→16:30)
[2018-03-18] MEDS: ACETAMINOPHEN 500 MG TABLET PO SCH ×2 (09:00→20:47)
[2018-03-18] MEDS: glyBURIDE 5 MG TABLET PO SCH ×2 (09:08→17:16)
[2018-03-18] MEDS: MULTIVITAMIN with MINERAL TABLET. PO SCH (09:08)
[2018-03-18] MEDS: BENZONATATE 100 MG CAPSULE. PO SCH ×3 (09:08→20:47)
[2018-03-18] MEDS: MIRABEGRON 25 MG TAB.ER.24H PO SCH (09:08)
[2018-03-18] MEDS: CEFDINIR 300 MG CAPSULE PO SCH ×2 (09:08→20:48)
[2018-03-18] MEDS: ASPIRIN 81 MG TAB.CHEW PO SCH (09:08)
[2018-03-18] MEDS: LACTOBACILLUS RHAMNOSUS GG 1 CAPSULE. PO SCH ×2 (09:08→20:47)
[2018-03-18] MEDS: amLODIPine BESYLATE 10 MG TABLET PO SCH (09:08)
[2018-03-18] MEDS: DICLOFENAC SODIUM 1% TOPICAL GEL 100GM TUBE. TP SCH ×3 (09:09→20:49)
[2018-03-18] MEDS: CALCIUM CARB/VIT D3 500/200 TABLET PO SCH ×2 (09:09→17:16)
[2018-03-18] MEDS: metFORMIN 500 MG TABLET PO SCH ×2 (09:09→17:16)
[2018-03-18] MEDS: BENZOCAINE/MENTHOL LOZNGE 18'S BOX. PO PRN ×2 (09:54→20:48)
[2018-03-18] MEDS: POLYETHYLENE GLYCOL 3350 17 GM PACKET. PO PRN (17:53)
[2018-03-18 19:40] VITALS: BP 145/60
[2018-03-19] MEDS: HYDROcodone/APAP 7.5/325MG 1 TAB TABLET PO PRN (04:28)
[2018-03-19] MEDS: IPRATRPIUM/ALBUTEROL 0.5/2.5MG 3 ML NEBU. NEB SCH ×4 (05:12→20:34)
[2018-03-19] MEDS: LEVOTHYROXINE 75 MCG TABLET PO SCH (05:29)
[2018-03-19 05:48] VITALS: BP 156/64
[2018-03-19] MEDS: INSULIN LISPRO 300 UNITS/3 ML INSULN.PEN. SQ SCH ×3 (07:30→17:00)
[2018-03-19] MEDS: MULTIVITAMIN with MINERAL TABLET. PO SCH (08:02)
[2018-03-19] MEDS: CALCIUM CARB/VIT D3 500/200 TABLET PO SCH ×2 (08:02→16:57)
[2018-03-19] MEDS: ASPIRIN 81 MG TAB.CHEW PO SCH (08:02)
[2018-03-19] MEDS: LACTOBACILLUS RHAMNOSUS GG 1 CAPSULE. PO SCH ×2 (08:02→20:16)
[2018-03-19] MEDS: glyBURIDE 5 MG TABLET PO SCH ×2 (08:02→16:57)
[2018-03-19] MEDS: BENZONATATE 100 MG CAPSULE. PO SCH ×3 (08:03→20:16)
[2018-03-19] MEDS: CEFDINIR 300 MG CAPSULE PO SCH ×2 (08:03→20:16)
[2018-03-19] MEDS: MIRABEGRON 25 MG TAB.ER.24H PO SCH (08:03)
[2018-03-19] MEDS: amLODIPine BESYLATE 10 MG TABLET PO SCH (08:03)
[2018-03-19] MEDS: metFORMIN 500 MG TABLET PO SCH ×2 (08:03→16:57)
[2018-03-19] MEDS: POLYETHYLENE GLYCOL 3350 17 GM PACKET. PO PRN (08:04)
[2018-03-19] MEDS: BENZOCAINE/MENTHOL LOZNGE 18'S BOX. PO PRN ×2 (08:04→20:16)
[2018-03-19] MEDS: DICLOFENAC SODIUM 1% TOPICAL GEL 100GM TUBE. TP SCH ×3 (08:04→20:20)
[2018-03-19] MEDS: ACETAMINOPHEN 500 MG TABLET PO SCH ×2 (08:09→20:16)
[2018-03-19] MEDS ORDERED: DOCUSATE SODIUM 100 MG CAPSULE PO PRN (17:15)
[2018-03-19 20:00] VITALS: BP 159/76
[2018-03-20] MEDS: HYDROcodone/APAP 7.5/325MG 1 TAB TABLET PO PRN (05:00)
[2018-03-20] MEDS: LEVOTHYROXINE 75 MCG TABLET PO SCH (05:00)
[2018-03-20 05:14] VITALS: BP 169/80
[2018-03-20] MEDS: IPRATRPIUM/ALBUTEROL 0.5/2.5MG 3 ML NEBU. NEB SCH ×4 (05:19→20:00)
[2018-03-20] MEDS: amLODIPine BESYLATE 10 MG TABLET PO SCH (08:04)
[2018-03-20] MEDS: CALCIUM CARB/VIT D3 500/200 TABLET PO SCH ×2 (08:04→17:30)
[2018-03-20] MEDS: BENZONATATE 100 MG CAPSULE. PO SCH ×3 (08:04→20:53)
[2018-03-20] MEDS: MULTIVITAMIN with MINERAL TABLET. PO SCH (08:05)
[2018-03-20] MEDS: LACTOBACILLUS RHAMNOSUS GG 1 CAPSULE. PO SCH ×2 (08:05→20:53)
[2018-03-20] MEDS: metFORMIN 500 MG TABLET PO SCH ×2 (08:05→17:29)
[2018-03-20] MEDS: ASPIRIN 81 MG TAB.CHEW PO SCH (08:05)
[2018-03-20] MEDS: glyBURIDE 5 MG TABLET PO SCH ×2 (08:05→17:30)
[2018-03-20] MEDS: ACETAMINOPHEN 500 MG TABLET PO SCH ×2 (08:05→20:53)
[2018-03-20] MEDS: CEFDINIR 300 MG CAPSULE PO SCH ×2 (08:05→20:53)
[2018-03-20] MEDS: MIRABEGRON 25 MG TAB.ER.24H PO SCH (08:05)
[2018-03-20] MEDS: DICLOFENAC SODIUM 1% TOPICAL GEL 100GM TUBE. TP SCH ×3 (08:08→21:00)
[2018-03-20] MEDS: INSULIN LISPRO 300 UNITS/3 ML INSULN.PEN. SQ SCH ×3 (08:12→16:30)
[2018-03-20] MEDS ORDERED: BISACODYL 10 MG SUPP.RECT PR PRN (09:45)
[2018-03-20] MEDS: BENZOCAINE/MENTHOL LOZNGE 18'S BOX. PO PRN ×2 (13:32→20:53)
[2018-03-20] MEDS: POLYETHYLENE GLYCOL 3350 17 GM PACKET. PO PRN (16:17)
[2018-03-20 20:09] VITALS: BP 135/73
--- NOTE | 2018-03-20 23:13 | PN ---
DATE: The patient is in the Skilled Unit. SUBJECTIVE: An 87-year-old female is getting rehabilitation and ____ generalized weakness, community-acquired pneumonia with consolidation. The patient seems to be doing much better overall. The patient otherwise needs to continue with rehabilitation. OBJECTIVE: VITAL SIGNS: Blood pressure 135/73, respiratory rate 20, pulse 68, afebrile. GENERAL: The patient is alert and oriented x 3. LUNGS: Diminished. ASSESSMENT AND PLAN: The patient is using walker with physical therapist, continues to mobilize and make good progress overall. Generalized weakness is recuperating from that of pneumonia of unspecified etiology. SARA ASHFORD MD DR: NITHYA/mickie JOB#: [id number] / [id number]
[2018-03-21] MEDS: HYDROcodone/APAP 7.5/325MG 1 TAB TABLET PO PRN (02:03)
[2018-03-21] MEDS: BENZOCAINE/MENTHOL LOZNGE 18'S BOX. PO PRN (03:20)
[2018-03-21] MEDS: LEVOTHYROXINE 75 MCG TABLET PO SCH (05:37)
[2018-03-21] MEDS: IPRATRPIUM/ALBUTEROL 0.5/2.5MG 3 ML NEBU. NEB SCH ×4 (05:41→20:00)
[2018-03-21 05:45] VITALS: BP 160/74
[2018-03-21] MEDS: BENZONATATE 100 MG CAPSULE. PO SCH ×3 (08:59→19:39)
[2018-03-21] MEDS: ASPIRIN 81 MG TAB.CHEW PO SCH (08:59)
[2018-03-21] MEDS: metFORMIN 500 MG TABLET PO SCH ×2 (08:59→17:48)
[2018-03-21] MEDS: CALCIUM CARB/VIT D3 500/200 TABLET PO SCH ×2 (08:59→17:00)
[2018-03-21] MEDS: LACTOBACILLUS RHAMNOSUS GG 1 CAPSULE. PO SCH ×2 (08:59→19:39)
[2018-03-21] MEDS: MULTIVITAMIN with MINERAL TABLET. PO SCH (08:59)
[2018-03-21] MEDS: ACETAMINOPHEN 500 MG TABLET PO SCH ×2 (09:00→19:39)
[2018-03-21] MEDS: amLODIPine BESYLATE 10 MG TABLET PO SCH (09:00)
[2018-03-21] MEDS: CEFDINIR 300 MG CAPSULE PO SCH ×2 (09:00→19:39)
[2018-03-21] MEDS: glyBURIDE 5 MG TABLET PO SCH ×2 (09:01→17:48)
[2018-03-21] MEDS: MIRABEGRON 25 MG TAB.ER.24H PO SCH (09:02)
[2018-03-21] MEDS: DICLOFENAC SODIUM 1% TOPICAL GEL 100GM TUBE. TP SCH ×3 (09:03→19:40)
[2018-03-21] MEDS: INSULIN LISPRO 300 UNITS/3 ML INSULN.PEN. SQ SCH ×3 (09:19→17:49)
[2018-03-21 18:25] VITALS: BP 137/78
[2018-03-22] MEDS: HYDROcodone/APAP 7.5/325MG 1 TAB TABLET PO PRN (04:17)
[2018-03-22] MEDS: LEVOTHYROXINE 75 MCG TABLET PO SCH (05:29)
[2018-03-22 05:32] VITALS: BP 151/74
[2018-03-22] MEDS: IPRATRPIUM/ALBUTEROL 0.5/2.5MG 3 ML NEBU. NEB SCH ×4 (05:41→20:00)
[2018-03-22] MEDS: INSULIN LISPRO 300 UNITS/3 ML INSULN.PEN. SQ SCH ×3 (07:30→17:38)
[2018-03-22] MEDS: LACTOBACILLUS RHAMNOSUS GG 1 CAPSULE. PO SCH ×2 (08:32→21:33)
[2018-03-22] MEDS: MIRABEGRON 25 MG TAB.ER.24H PO SCH (08:33)
[2018-03-22] MEDS: CALCIUM CARB/VIT D3 500/200 TABLET PO SCH ×2 (08:33→15:27)
[2018-03-22] MEDS: metFORMIN 500 MG TABLET PO SCH ×2 (08:33→15:28)
[2018-03-22] MEDS: MULTIVITAMIN with MINERAL TABLET. PO SCH (08:33)
[2018-03-22] MEDS: ACETAMINOPHEN 500 MG TABLET PO SCH ×2 (08:33→21:32)
[2018-03-22] MEDS: BENZONATATE 100 MG CAPSULE. PO SCH ×3 (08:33→21:33)
[2018-03-22] MEDS: ASPIRIN 81 MG TAB.CHEW PO SCH (08:33)
[2018-03-22] MEDS: amLODIPine BESYLATE 10 MG TABLET PO SCH (08:34)
[2018-03-22] MEDS: CEFDINIR 300 MG CAPSULE PO SCH ×2 (08:34→21:33)
[2018-03-22] MEDS: glyBURIDE 5 MG TABLET PO SCH ×2 (08:36→15:28)
[2018-03-22] MEDS: DICLOFENAC SODIUM 1% TOPICAL GEL 100GM TUBE. TP SCH ×3 (09:00→21:00)
[2018-03-22 18:30] VITALS: BP 151/78
[2018-03-22] MEDS: BENZOCAINE/MENTHOL LOZNGE 18'S BOX. PO PRN (21:32)
[2018-03-23] MEDS: IPRATRPIUM/ALBUTEROL 0.5/2.5MG 3 ML NEBU. NEB SCH ×4 (05:33→20:00)
[2018-03-23] MEDS: LEVOTHYROXINE 75 MCG TABLET PO SCH (05:55)
[2018-03-23] MEDS: BENZOCAINE/MENTHOL LOZNGE 18'S BOX. PO PRN ×2 (06:16→19:41)
[2018-03-23 06:32] VITALS: BP 148/74
[2018-03-23] MEDS: INSULIN LISPRO 300 UNITS/3 ML INSULN.PEN. SQ SCH ×3 (07:30→17:18)
[2018-03-23] MEDS: BENZONATATE 100 MG CAPSULE. PO SCH ×3 (08:40→19:41)
[2018-03-23] MEDS: metFORMIN 500 MG TABLET PO SCH ×2 (08:40→17:17)
[2018-03-23] MEDS: amLODIPine BESYLATE 10 MG TABLET PO SCH (08:40)
[2018-03-23] MEDS: MULTIVITAMIN with MINERAL TABLET. PO SCH (08:40)
[2018-03-23] MEDS: LACTOBACILLUS RHAMNOSUS GG 1 CAPSULE. PO SCH ×2 (08:41→19:41)
[2018-03-23] MEDS: glyBURIDE 5 MG TABLET PO SCH ×2 (08:41→17:17)
[2018-03-23] MEDS: ASPIRIN 81 MG TAB.CHEW PO SCH (08:41)
[2018-03-23] MEDS: CEFDINIR 300 MG CAPSULE PO SCH ×2 (08:41→19:41)
[2018-03-23] MEDS: CALCIUM CARB/VIT D3 500/200 TABLET PO SCH ×2 (08:41→17:16)
[2018-03-23] MEDS: MIRABEGRON 25 MG TAB.ER.24H PO SCH (08:41)
[2018-03-23] MEDS: ACETAMINOPHEN 500 MG TABLET PO SCH ×2 (08:44→19:41)
[2018-03-23] MEDS: DICLOFENAC SODIUM 1% TOPICAL GEL 100GM TUBE. TP SCH ×3 (08:45→19:42)
[2018-03-23] MEDS ORDERED: CEFD300C PO (15:44)
[2018-03-23 18:23] VITALS: BP 155/83
[2018-03-24 05:28] VITALS: BP 123/55
[2018-03-24] MEDS: LEVOTHYROXINE 75 MCG TABLET PO SCH (05:29)
[2018-03-24] MEDS: HYDROcodone/APAP 7.5/325MG 1 TAB TABLET PO PRN (05:29)
[2018-03-24] MEDS: IPRATRPIUM/ALBUTEROL 0.5/2.5MG 3 ML NEBU. NEB SCH ×4 (05:38→20:00)
[2018-03-24] MEDS ORDERED: CEFD300C PO (07:39)
[2018-03-24] MEDS: INSULIN LISPRO 300 UNITS/3 ML INSULN.PEN. SQ SCH ×3 (07:54→17:02)
[2018-03-24] MEDS: ACETAMINOPHEN 500 MG TABLET PO SCH ×2 (08:43→19:50)
[2018-03-24] MEDS: BENZONATATE 100 MG CAPSULE. PO SCH ×3 (08:43→19:50)
[2018-03-24] MEDS: LACTOBACILLUS RHAMNOSUS GG 1 CAPSULE. PO SCH ×2 (08:43→19:50)
[2018-03-24] MEDS: CEFDINIR 300 MG CAPSULE PO SCH ×2 (08:44→19:50)
[2018-03-24] MEDS: amLODIPine BESYLATE 10 MG TABLET PO SCH (08:44)
[2018-03-24] MEDS: glyBURIDE 5 MG TABLET PO SCH ×2 (08:44→17:02)
[2018-03-24] MEDS: MULTIVITAMIN with MINERAL TABLET. PO SCH (08:44)
[2018-03-24] MEDS: metFORMIN 500 MG TABLET PO SCH ×2 (08:44→17:02)
[2018-03-24] MEDS: ASPIRIN 81 MG TAB.CHEW PO SCH (08:44)
[2018-03-24] MEDS: CALCIUM CARB/VIT D3 500/200 TABLET PO SCH ×2 (08:44→17:02)
[2018-03-24] MEDS: MIRABEGRON 25 MG TAB.ER.24H PO SCH (08:45)
[2018-03-24] MEDS: DICLOFENAC SODIUM 1% TOPICAL GEL 100GM TUBE. TP SCH ×3 (08:47→19:51)
[2018-03-24 19:22] VITALS: BP 147/72
[2018-03-25] MEDS: LEVOTHYROXINE 75 MCG TABLET PO SCH (05:42)
[2018-03-25] MEDS: HYDROcodone/APAP 7.5/325MG 1 TAB TABLET PO PRN (05:42)
[2018-03-25 05:45] VITALS: BP 145/79
[2018-03-25] MEDS: INSULIN LISPRO 300 UNITS/3 ML INSULN.PEN. SQ SCH ×3 (07:30→17:41)
[2018-03-25] MEDS: IPRATRPIUM/ALBUTEROL 0.5/2.5MG 3 ML NEBU. NEB SCH ×4 (08:00→20:00)
[2018-03-25] MEDS: CALCIUM CARB/VIT D3 500/200 TABLET PO SCH ×2 (08:32→17:38)
[2018-03-25] MEDS: CEFDINIR 300 MG CAPSULE PO SCH ×2 (08:32→20:52)
[2018-03-25] MEDS: MIRABEGRON 25 MG TAB.ER.24H PO SCH (08:32)
[2018-03-25] MEDS: BENZONATATE 100 MG CAPSULE. PO SCH ×3 (08:32→20:52)
[2018-03-25] MEDS: ACETAMINOPHEN 500 MG TABLET PO SCH ×2 (08:33→20:52)
[2018-03-25] MEDS: glyBURIDE 5 MG TABLET PO SCH ×2 (08:33→17:38)
[2018-03-25] MEDS: LACTOBACILLUS RHAMNOSUS GG 1 CAPSULE. PO SCH ×2 (08:34→20:52)
[2018-03-25] MEDS: MULTIVITAMIN with MINERAL TABLET. PO SCH (08:34)
[2018-03-25] MEDS: DICLOFENAC SODIUM 1% TOPICAL GEL 100GM TUBE. TP SCH ×3 (08:35→20:55)
[2018-03-25] MEDS: ASPIRIN 81 MG TAB.CHEW PO SCH (08:35)
[2018-03-25] MEDS: amLODIPine BESYLATE 10 MG TABLET PO SCH (08:35)
[2018-03-25] MEDS: metFORMIN 500 MG TABLET PO SCH ×2 (08:35→17:38)
[2018-03-25 18:44] VITALS: BP 132/77
[2018-03-26] MEDS: LEVOTHYROXINE 75 MCG TABLET PO SCH (05:43)
[2018-03-26 05:56] VITALS: BP 149/82
[2018-03-26] MEDS: INSULIN LISPRO 300 UNITS/3 ML INSULN.PEN. SQ SCH ×2 (07:30→11:30)
[2018-03-26] MEDS: IPRATRPIUM/ALBUTEROL 0.5/2.5MG 3 ML NEBU. NEB SCH ×3 (08:00→16:00)
[2018-03-26] MEDS: metFORMIN 500 MG TABLET PO SCH (08:08)
[2018-03-26 08:09] VITALS: BP 149/82
[2018-03-26] MEDS: glyBURIDE 5 MG TABLET PO SCH (08:09)
[2018-03-26] MEDS: ASPIRIN 81 MG TAB.CHEW PO SCH (08:09)
[2018-03-26] MEDS: CALCIUM CARB/VIT D3 500/200 TABLET PO SCH (08:09)
[2018-03-26] MEDS: LACTOBACILLUS RHAMNOSUS GG 1 CAPSULE. PO SCH (08:09)
[2018-03-26] MEDS: BENZONATATE 100 MG CAPSULE. PO SCH ×2 (08:09→16:00)
[2018-03-26] MEDS: amLODIPine BESYLATE 10 MG TABLET PO SCH (08:09)
[2018-03-26] MEDS: MIRABEGRON 25 MG TAB.ER.24H PO SCH (08:09)
[2018-03-26] MEDS: ACETAMINOPHEN 500 MG TABLET PO SCH (08:09)
[2018-03-26] MEDS: MULTIVITAMIN with MINERAL TABLET. PO SCH (08:09)
[2018-03-26] MEDS: CEFDINIR 300 MG CAPSULE PO SCH (08:10)
[2018-03-26] MEDS: DICLOFENAC SODIUM 1% TOPICAL GEL 100GM TUBE. TP SCH ×2 (08:10→16:00)
[2018-03-26] MEDS ORDERED: PNEUMOC CONJ VACC 23-VALENT 0.5 ML VIAL. VAX IM ONE (09:30)
--- NOTE | 2018-04-02 10:23 | DS ---
DATE OF DISCHARGE: 03/26/2018 An 87-year-old female discharged on 03/26/2018. The patient was on the skilled unit for rehabilitation. The patient was admitted for a community-acquired pneumonia with consolidation on the regular floor. She was transferred to skilled unit for PT, OT and make further evaluation on her. She did excellent progress and was therefore, discharged home for continued medical care. See MRAD. Decreased activity and low sodium diet. Otherwise, the pneumonia of unspecified etiology, community acquired, discharge from skilled unit for continued care and rehabilitation. Follow up with home health and follow up with primary care doctor in 7-10 days or sooner as needed. SARA ASHFORD MD DR: NITHYA/mickie JOB#: [id number] / [id number]
== END 2018-03-26 16:45 | disposition home health service (06) | DRG 195 ==
LOC: 1 SOUTH 17:58
PROVIDERS: ADMIT Family Medicine; ATTEND Family Medicine
DX: J18.9 Pneumonia, unspecified organism (principal); Z66 Do not resuscitate; R53.1 Weakness; Z91.81 History of falling
CPT/HCPCS: 82947; 90471; 90732; 90756; 94640; G0009; J1815; J7620; 97110; 97112; 97116; 97530; 97535; Q2035

== ENCOUNTER 2018-04-13 18:38 | Emergency (ER) | payer MEDICARE ==
[~2018-04-13] VITALS: Ht 165.1 cm; Wt 95.3 kg
[~2018-04-13 18:38] MED LIST changes: +CEFD300C PO
--- NOTE | 2018-04-13 18:56 | RAD ---
CT CODE STROKE HEAD WO History: LEFT SIDED FACIAL DROOPING, DIFFICULTY SPEAKING, WEAKNESS Comparison: March 11, 2018 Technique: Noncontrast CT imaging was performed of the head. Exposure: One or more of the following individualized dose reduction techniques were utilized for this examination: 1. Automated exposure control 2. Adjustment of the mA and/or kV according to patient size 3. Use of iterative reconstruction technique. Findings: No acute extra-axial or parenchymal hemorrhage is identified. There is no significant intra-axial mass effect, midline shift, or extra-axial fluid collection. The moncada-white differentiation of the major vascular territories is preserved. Ventricular size is within normal limits. Mild supratentorial additional change is not unexpected for patient's age. The mastoid air cells and the visualized paranasal sinuses are aerated. No acute calvarial abnormality is identified. There is atherosclerotic calcification carotid siphons bilaterally. Impression: 1. No acute intracranial abnormality is identified. FOR INTERNAL CODING PURPOSES Critical result: Findings discussed with KATELYN CHAVEZ at 04/13/2018 6:51 PM. RESULT CODE: (C) Electronically signed by: Andrea Morrison MD (04/13/2018 6:53 PM) [facility]
[2018-04-13] MEDS ORDERED: ALTEPLASE 100 MG IV ONE (18:59)
[2018-04-13] MEDS ORDERED: LABETALOL 20 MG/4 ML DISP.SYRIN. IVP ONE (19:00)
[2018-04-13] MEDS ORDERED: ALTEPLASE IV SCH (19:15)
[2018-04-13] MEDS ORDERED: LABETALOL 20 MG/4 ML DISP.SYRIN. IV PRN (19:15)
[2018-04-13] MEDS ORDERED: IV NORMAL SALINE 50ML 50 ML IV ONE (19:15)
[2018-04-13] MEDS ORDERED: ALTEPLASE IV ONE (19:15)
[2018-04-13 19:33] LABS: HEMOGLOBIN 12.7 g/dL (12.0-15.5); RED BLOOD COUNT 3.98 x10^6/uL (3.50-5.40); WHITE BLOOD COUNT 6.8 x10^3/uL (4.0-11.0)
[2018-04-13 19:46] LABS: ALBUMIN 3.7 g/dL (3.4-5.0); CALCIUM 10.1 mg/dL (8.5-10.1); CREATININE 0.9 mg/dL (0.6-1.0); GFR 59.1; POTASSIUM 4.5 mmol/L (3.5-5.1); TOTAL BILIRUBIN 0.2 mg/dL (0.2-1.0); TOTAL PROTEIN 7.5 g/dL (6.4-8.2)
[2018-04-13] MEDS ORDERED: IV NORMAL SALINE 250ML 250 ML ONE (19:50)
--- NOTE | 2018-04-13 20:08 | PHYS DOC ---
Text Text Diagnosis ischemic stroke General Chief Complaint: NEURO SYMPTOMS/DEFICITS Stated Complaint: SLURRED SPEECH Time Seen by MD: 18:58 Source: patient, family Exam Limitations: clinical condition History of Present Illness Initial Comments Patient presented to the emergency department with slurred speech facial droop and left upper and lower extremity weakness. The patient's symptoms started at 6 PM but she is not sure daughter is the power of energy attorney stated the last time the mother was seen normal was around 12pm , when the daughter came home to see her mom she noticed she has facial droop and weakness and slurred speech around 5:30 PM Severity: moderate Allergies: Coded Allergies: No Known Drug Allergies (Unverified , 04/13/18) Past Medical History Neuro/Medical History: high cholesterol, hypertension Surgical History: noncontributory Family History Significant Family History: no pertinent family hx Social History Smoker: non-smoker Alcohol: none Drugs: none Review of Systems Psychiatric/Neurological: see HPI Physical Exam Eyes: bilateral eye normal inspection, bilateral eye PERRL, bilateral eye EOMI Ears, Nose, Throat: normal ENT inspection, hearing grossly normal Neck: non-tender, full range of motion, supple Respiratory: chest non-tender, lungs clear, normal breath sounds Cardiovascular: normal peripheral pulses, regular rate, rhythm, no edema Peripheral Pulses: 2+ carotid (R), 2+ carotid (L) Gastrointestinal: normal bowel sounds, non tender Back: normal inspection, no CVA tenderness Extremities: non-tender Psychiatric: alert Coordination/Gait: ABN nose to finger (L) Motor/Sensory: pronator drift (L), weak motor strength LUE Skin: normal color, warm/dry Orders, Labs, Meds During her emergency department stay patient received labetalol, Micardis been drip symptoms improved she started moving her left arm and left leg power is 5 out of 5 on the left side slurred speech almost resolved, her daughter declined TPA after discussing the risk and benefits. We discussed the case with neurology patient to be transferred to [facility] neurology KATELYN CHAVEZ MD Apr 13, 2018 20:08
[2018-04-13] MEDS ORDERED: ASPIRIN 325 MG TABLET PO ONE (20:15)
[2018-04-13 20:56] VITALS: BP 196/74
--- NOTE | 2018-04-13 23:00 | EKG ---
[address] [address] Test Date: 2018-04-13 Test Time: 18:55:53 Pat Name: FLOR[place] NUGENT Department: Room: Gender: F Gaming Dealer: : 1930 Requested By: KATELYN CHAVEZ Order Number: [id number] Reading MD: Klaus Nolan MD Measurements Intervals [place] Rate: 67 P: 56 CA: 158 QRS: -25 QRSD: 88 T: 14 QT: 388 QTc: 413 Interpretive Statements SINUS RHYTHM NON-SPECIFIC ST/T CHANGES Electronically Signed On 04-14-2018 7:08:43 [employer] by Klaus Nolan MD
== END 2018-04-13 21:10 | disposition short-term general hospital (02) ==
LOC: ER 18:38
DX: I63.9 Cerebral infarction, unspecified (principal); R47.81 Slurred speech; R29.810 Facial weakness; R53.1 Weakness; E78.00 Pure hypercholesterolemia, unspecified; I10 Essential (primary) hypertension
CPT/HCPCS: 36415; 51702; 70450; 80053; 83605; 84484; 85027; 85384; 85651; 85730; 93005; 96365; 96375; 96376; 99285; J3490; J7050